=== PATIENT | female | born 1990 | race Native Hawaiian/Other Pacific Islander ===

== ENCOUNTER 2022-12-01 10:47 | Emergency (ER) | payer MEDICARE, OTHER ==
[2022-12-01] MEDS ORDERED: KETOROLAC 15 MG/ML VIAL IVP STA (11:12)
[2022-12-01] MEDS ORDERED: NS IV 1000 ML 1,000 ML IV STA (11:12)
--- NOTE | 2022-12-01 11:19 | ED Headache ---
General Chief Complaint: Head/Cervical Problems Stated Complaint: AMS; SCHAEFER Source: patient, family History of Present Illness Date Seen by Provider: Dec 01, 2022 Time Seen by Provider: 10:50 Initial Comments 32-year-old female presenting with complaints of left-sided headache x2 days. She does have a history of migraine headaches and says that this feels somewhat similar. She had nausea with vomiting 2 days ago. She uses Depo-Provera for control and has not had a period while on that. She recently started Pristiq and Ambien as well as took Hydroxyzine this morning. Her significant other reported that she was having trouble getting in and out of the truck this morning so he was worried there is something more going on. He felt like her personality was different and she was not responding normally. She denies having fever, chills, change in vision, chest pain, abdominal pain, pain with urination, change in bowels, any trauma or head injury. Timing/Duration: other (Left-sided headache present for 2 days and a little slower to respond this morning since taking Ambien, Pristiq, hydroxyzine.) Severity/Quality: moderate Location: parietal (left sided headache) Prior Headaches/Recent Trauma: no recent headache/trauma Associated Symptoms: confusion (slow to respond and answer questions this morning); No fatigue, No facial pain, No fever/chills, No flushing, No loss of consciousness; nausea/vomiting (x 1 episode 2 days ago when headache started); No nasal congestion, No nasal drainage, No numbness in legs/feet, No rash, No seizures, No sinus infection, No stiff neck, No vision changes, No weakness Allergies and Home Medications Allergies Coded Allergies: codeine (Verified Allergy, Unknown, 12/01/22) Patient Home Medication List Home Medication List Reviewed: Yes Review of Systems Review of Systems Constitutional: No chills, No dizziness, No fever Eyes: Denies Blurred Vision, Denies Photophobia Ears, Nose, Mouth, Throat: denies ear pain, denies ear discharge, denies nose pain, denies nose discharge, denies epistaxis Respiratory: No cough, No short of breath Cardiovascular: No chest pain Gastrointestinal: see HPI Genitourinary: no symptoms reported Musculoskeletal: No neck pain Skin: No rash Psychiatric/Neurological: See HPI Past Ceepxvf-Bdckvu-Bnsshc Hx Patient Social History Tobacco Use?: No Substance use?: No Alcohol Use?: No Pt feels they are or have been: No Past Medical History Surgery/Hospitalization HX: Lupus; Migraines; Reynauds Physical Exam Vital Signs Vital Signs - First Documented 12/01/22 10:55 Temp 36.7 Pulse 112 Resp 16 B/P (MAP) 122/68 (86) Pulse Ox 99 O2 Delivery Room Air Capillary Refill : Height, Weight, BMI Height: '" Weight: lbs. oz. kg; BMI Method: General Appearance: WD/WN, no apparent distress HEENT: PERRL/EOMI, normal ENT inspection, pharynx normal Neck: non-tender, full range of motion, supple, normal inspection Cardiovascular: normal peripheral pulses, regular rate, rhythm Respiratory: chest non-tender, lungs clear, normal breath sounds, no respiratory distress, no accessory muscle use Gastrointestinal: normal bowel sounds, non tender, soft, no pulsatile mass Extremities: normal range of motion, non-tender, normal capillary refill Psychiatric: alert (but slow to answer questions), oriented x 3 Crainal Nerves: normal hearing, normal speech, PERRL Coordination/Gait: normal gait Motor/Sensory: no motor deficit, no sensory deficit Skin: normal color, warm/dry; No rash Progress/Results/Core Measures Results/Orders Lab Results Laboratory Tests Test 12/01/22 11:32 12/01/22 12:04 Range/Units White Blood Count 5.2 4.3-11.0 10^3/uL Red Blood Count 3.82 3.80-5.11 10^6/uL Hemoglobin 11.9 11.5-16.0 g/dL Hematocrit 36 35-52 % Mean Corpuscular Volume 93 80-99 fL Mean Corpuscular Hemoglobin 31 25-34 pg Mean Corpuscular Hemoglobin Concent 34 32-36 g/dL Red Cell Distribution Width 12.1 10.0-14.5 % Platelet Count 345 130-400 10^3/uL Mean Platelet Volume 9.3 9.0-12.2 fL Immature Granulocyte % (Auto) 0 % Neutrophils (%) (Auto) 66 42-75 % Lymphocytes (%) (Auto) 19 12-44 % Monocytes (%) (Auto) 10 0-12 % Eosinophils (%) (Auto) 4 0-10 % Basophils (%) (Auto) 1 0-10 % Neutrophils # (Auto) 3.4 1.8-7.8 10^3/uL Lymphocytes # (Auto) 1.0 1.0-4.0 10^3/uL Monocytes # (Auto) 0.5 0.0-1.0 10^3/uL Eosinophils # (Auto) 0.2 0.0-0.3 10^3/uL Basophils # (Auto) 0.0 0.0-0.1 10^3/uL Immature Granulocyte # (Auto) 0.0 0.0-0.1 10^3/uL Sodium Level 138 135-145 MMOL/L Potassium Level 4.0 3.6-5.0 MMOL/L Chloride Level 105 98-107 MMOL/L Carbon Dioxide Level 23 21-32 MMOL/L Anion Gap 10 5-14 MMOL/L Blood Urea Nitrogen 10 7-18 MG/DL Creatinine 0.64 0.60-1.30 MG/DL Estimat Glomerular Filtration Rate 122 BUN/Creatinine Ratio 16 Glucose Level 85 70-105 MG/DL Calcium Level 8.6 8.5-10.1 MG/DL Corrected Calcium 8.7 8.5-10.1 MG/DL Total Bilirubin 0.4 0.1-1.0 MG/DL Aspartate Amino Transf (AST/SGOT) 18 5-34 U/L Alanine Aminotransferase (ALT/SGPT) 14 0-55 U/L Alkaline Phosphatase 66 40-136 U/L Total Protein 8.8 H 6.4-8.2 GM/DL Albumin 3.9 3.2-4.5 GM/DL Salicylates Level < 0.3 L 5.0-20.0 MG/DL Acetaminophen Level < 10 L 10-30 UG/ML Serum Alcohol < 10 <10 MG/DL Urine Color YELLOW Urine Clarity CLEAR Urine pH 6.5 5-9 Urine Specific [place] 1.020 1.016-1.022 Urine Protein NEGATIVE NEGATIVE Urine Glucose (UA) NEGATIVE NEGATIVE Urine Ketones NEGATIVE NEGATIVE Urine Nitrite NEGATIVE NEGATIVE Urine Bilirubin NEGATIVE NEGATIVE Urine Urobilinogen 0.2 < = 1.0 MG/DL Urine Leukocyte Esterase NEGATIVE NEGATIVE Urine RBC (Auto) TRACE-I H NEGATIVE Urine RBC 0-2 /HPF Urine WBC 2-5 /HPF Urine Squamous Epithelial Cells RARE /HPF Urine Crystals NONE /LPF Urine Bacteria TRACE /HPF Urine Casts NONE /LPF Urine Mucus NEGATIVE /LPF Urine Culture Indicated NO Urine Opiates Screen NEGATIVE NEGATIVE Urine Oxycodone Screen NEGATIVE NEGATIVE Urine Methadone Screen NEGATIVE NEGATIVE Urine Propoxyphene Screen NEGATIVE NEGATIVE Urine Barbiturates Screen NEGATIVE NEGATIVE Ur Tricyclic Antidepressants Screen NEGATIVE NEGATIVE Urine Phencyclidine Screen NEGATIVE NEGATIVE Urine Amphetamines Screen NEGATIVE NEGATIVE Urine Methamphetamines Screen NEGATIVE NEGATIVE Urine Benzodiazepines Screen NEGATIVE NEGATIVE Urine Cocaine Screen NEGATIVE NEGATIVE Urine Cannabinoids Screen NEGATIVE NEGATIVE My Orders Orders - LESLEY CHASE MD Ua Culture If Indicated (12/01/22 11:12) Cbc With Automated Diff (12/01/22 11:12) Comprehensive Metabolic Panel (12/01/22 11:12) Alcohol (12/01/22 11:12) Drug Screen Stat (Urine) (12/01/22 11:12) Acetaminophen (12/01/22 11:12) Salicylate (12/01/22 11:12) Ed Iv/Invasive Line Start (12/01/22 11:12) Ns Iv 1000 Ml (Sodium Chloride 0.9%) (12/01/22 11:12) Ketorolac Injection (Toradol Injection) (12/01/22 11:12) Ct Head Wo (12/01/22 11:12) Vital Signs/I&O 12/01/22 12/01/22 10:55 12:58 Temp 36.7 36.7 Pulse 112 98 Resp 16 16 B/P (MAP) 122/68 (86) 125/62 Pulse Ox 99 99 O2 Delivery Room Air Room Air Progress Progress Note #1: Progress Note Potential diagnosis of migraine headache, intracranial hemorrhage, brain tumor, sinusitis, stroke, medication side effect. Obtained peripheral IV access for medications and draw labs to include complete blood count, comprehensive metabolic profile, alcohol, acetaminophen, salicylate, urinalysis, urine drug screen, urine . Obtain a CT scan of the head looking for signs of acute trauma, intracranial hemorrhage, stroke, brain mass. Administer normal saline 1 L IV fluid bolus for hydration, Toradol 15 mg IV for pain. This could be related to recently starting Ambien to help sleep as well as taking Pristiq and Hydroxyzine this am for depression and anxiety. Progress Note #2: Progress Note Complete blood count was not showing elevated white count for infection or inflammation. She was not anemic with her hemoglobin in the normal range. Her comprehensive metabolic profile did not show any acute significant abnormality with her electrolytes, kidney function, liver function. Her urinalysis was not showing signs of dehydration or infection. Her urine drug screen was not showing any illicit substances in her body. Her alcohol, salicylate, acetaminophen levels were all 0. My personal review and interpretation of her CT head without contrast showed no acute intracranial hemorrhage or mass. IV access obtained after several attempts but when giving Toradol and IVF the IV infiltrated and had to be stopped. Progress Note #3: Time: 12:53 Progress Note I reviewed the negative CT head and negative labs with the patient and signifi cant other. He reports that the clinic has been trying to adjust the dose of the Ambien for the patient as it was making her too sedated. In addition she took her hydroxyzine and Pristiq this morning. The combination of all those medicines can certainly make her more groggy and sedated to explain her being slower to respond to questions. I reassured them that we did not see any thing worrisome off of her CT head and her blood work was were not showing dehydration, infection, signs of inflammation, any acute organ damage. Patient reported that her headache was down to a 5 out of 10 but she was interested in having more medication to try and help with the headache. As she is already still sedated some from the oral medication she takes at home will administer some additional Toradol since her first dose was only 15 mg IV will give 30 mg of Toradol IM since her IV had infiltrated. Encouraged to rest and get plenty of fluids. Continue to work with her regular providers on her medications and dosages but she has several medicines that can make her sleepy or sedated. Diagnostic Imaging Diagonstic Imaging: CT Plain Films/CT/US/NM/MRI: head Comments [facility] [place], [place] NAME: KRISHAN PERRY [facility] REC#: [id number] PT STATUS: REG ER : 1990 PHYSICIAN: LESLEY CHASE MD ADMIT DATE: 12/01/22/ER FS Draft Date of Exam:12/01/22 CT HEAD WO PROCEDURE: CT head without contrast. TECHNIQUE: Multiple contiguous axial images were obtained through the brain without the use of intravenous contrast. Auto Exposure Controls were utilized during the CT exam to meet ALARA standards for radiation dose reduction. INDICATION: Left-sided headache. No prior studies are available for comparison. FINDINGS: Ventricles and sulci are within normal limits. No sulcal effacement or midline shift is identified. No acute intra-axial or extra-axial hemorrhage is detected. Cisterns are patent. Visualized paranasal sinuses are clear. IMPRESSION: No acute intracranial process is detected. Dictated on workstation # [id number] Dict: 12/01/22 1158 Trans: 12/01/22 1201 [id number] Interpreted by: SHILOH BATISTA MD Electronically signed by: Reviewed: Reviewed by Me (I reviewed the radiologist report on the CT head at 1228) Departure Impression Primary Impression: Left-sided headache Additional Impressions: Slowness and poor responsiveness Medication side effects Disposition: 01 HOME, SELF-CARE Condition: Stable Departure-Patient Inst. Decision time for Depature: 12:53 Referrals: VICTORIANO WOODARD MD (PCP) Primary Care Physician [facility]/JOHN (Family) Primary Care Physician Patient Instructions: Headache, Adult ED, Home Headache Remedies, Adverse Drug Reactions, Adult ED, Side Effects From Medicines Add. Discharge Instructions: Stay well-hydrated and drink plenty of fluids. Rest in a cool dark room to help with the headache. Your body will adjust to the new medications but initially they can cause increased sedation and affect your mentation. Check back with your primary care provider for continued concerns or other problems. All discharge instructions reviewed with patient and/or family. Voiced understanding. LESLEY CHASE MD Dec 01, 2022 11:19
[2022-12-01 11:42] LABS: BASOPHILS % (AUTO) 1 % (0-10); EOSINOPHILS # (AUTO) 0.2 10^3/uL (0.0-0.3); EOSINOPHILS % (AUTO) 4 % (0-10); HEMATOCRIT 36 % (35-52); HEMOGLOBIN 11.9 g/dL (11.5-16.0); LYMPHOCYTES % (AUTO) 19 % (12-44); MEAN CORPUSCULAR HEMOGLOBIN 31 pg (25-34); MEAN CORPUSCULAR HGB CONC 34 g/dL (32-36); MEAN CORPUSCULAR VOLUME 93 fL (80-99); MEAN PLATELET VOLUME 9.3 fL (9.0-12.2); MONOCYTES # (AUTO) 0.5 10^3/uL (0.0-1.0); MONOCYTES % (AUTO) 10 % (0-12); NEUTROPHILS # (AUTO) 3.4 10^3/uL (1.8-7.8); NEUTROPHILS % (AUTO) 66 % (42-75); PLATELET COUNT 345 10^3/uL (130-400); WHITE BLOOD COUNT 5.2 10^3/uL (4.3-11.0)
--- NOTE | 2022-12-01 12:01 | Diagnostic Imaging Report ---
PROCEDURE: CT head without contrast. TECHNIQUE: Multiple contiguous axial images were obtained through the brain without the use of intravenous contrast. Auto Exposure Controls were utilized during the CT exam to meet ALARA standards for radiation dose reduction. INDICATION: Left-sided headache. No prior studies are available for comparison. FINDINGS: Ventricles and sulci are within normal limits. No sulcal effacement or midline shift is identified. No acute intra-axial or extra-axial hemorrhage is detected. Cisterns are patent. Visualized paranasal sinuses are clear. IMPRESSION: No acute intracranial process is detected. Dictated by: Dictated on workstation # [id number]
[2022-12-01 12:02] LABS: ALANINE AMINOTRANSFERASE 14 U/L (0-55); ALKALINE PHOSPHATASE 66 U/L (40-136); BILIRUBIN,TOTAL 0.4 MG/DL (0.1-1.0); BUN/CREATININE RATIO 16; CALCIUM 8.6 MG/DL (8.5-10.1); CARBON DIOXIDE 23 MMOL/L (21-32); CHLORIDE 105 MMOL/L (98-107); CREATININE SERUM 0.64 MG/DL (0.60-1.30); GFR ESTIMATED 122; GLUCOSE 85 MG/DL (70-105); SODIUM 138 MMOL/L (135-145)
[2022-12-01 12:03] LABS: ACETAMINOPHEN < 10 UG/ML (10-30); ALBUMIN 3.9 GM/DL (3.2-4.5); SALICYLATE < 0.3 MG/DL (5.0-20.0); TOTAL PROTEIN 8.8 GM/DL (6.4-8.2)
[2022-12-01 12:12] LABS: BILIRUBIN,URINE NEGATIVE (NEGATIVE); CLARITY,URINE CLEAR; COLOR,URINE YELLOW; GLUCOSE, URINE (UA) NEGATIVE (NEGATIVE); KETONES,URINE NEGATIVE (NEGATIVE); LEUKOCYTE ESTERASE ,URINE NEGATIVE (NEGATIVE); NITRITE,URINE NEGATIVE (NEGATIVE); PH,URINE 6.5 (5-9); PROTEIN,URINE NEGATIVE (NEGATIVE)
[2022-12-01 12:18] LABS: BACTERIA,URINE TRACE /HPF; RBC,URINE 0-2 /HPF; SQUAMOUS EPITHELIAL CELL,UR RARE /HPF
[2022-12-01 12:24] LABS: AMPHETAMINE SCREEN, URINE NEGATIVE (NEGATIVE); BARBITURATE SCREEN URINE NEGATIVE (NEGATIVE); BENZODIAZEPINES SCREEN URINE NEGATIVE (NEGATIVE); CANNABINOID SCREEN, URINE NEGATIVE (NEGATIVE); COCAINE SCREEN URINE NEGATIVE (NEGATIVE); METHADONE STAT NEGATIVE (NEGATIVE); OPIATE SCREEN URINE NEGATIVE (NEGATIVE); OXYCODONE STAT NEGATIVE (NEGATIVE); PROPOXYPHENE STAT NEGATIVE (NEGATIVE); TRICYCLIC ANTIDEPRESSANTS SCRE NEGATIVE (NEGATIVE)
[2022-12-01 12:58] VITALS: BP 125/62
[2022-12-01] MEDS ORDERED: KETOROLAC 30 MG/ML VIAL IM STA (13:04)
== END 2022-12-01 12:57 | disposition home or self-care (01) ==
LOC: ER FS 10:50
DX: R51.9 Headache, unspecified (principal); R46.4 Slowness and poor responsiveness; T88.7XXA Unspecified adverse effect of drug or medicament, initial encounter; Z86.69 Personal history of other diseases of the nervous system and sense organs
CPT/HCPCS: 36415; 70450; 80053; 80306; 81000; 85025; 99283; G0480 ×3; 80320; 80329